=== PATIENT | female | born 1960 | race Caucasian/White ===

== ENCOUNTER 2018-02-25 16:45 | Inpatient (IN) | payer BC ==
[~2018-02-25] VITALS: Ht 160 cm; Wt 45.8 kg
[2018-02-25 17:10] VITALS: BP_SYST 118
[2018-02-25] MEDS ORDERED: NACL 0.9% 2,000 ML IV ONE (17:30)
[2018-02-25 17:48] LABS: BASOPHILS % (AUTO) 0.3 % (0.0-2.0); EOSINOPHILS % (AUTO) 0.1 % (0.0-4.0); HEMATOCRIT 41.8 % (36-48); HEMOGLOBIN 14.3 g/dL (12.0-16.0); LYMPHOCYTES % (AUTO) 6.6 % (20.5-51.5); MEAN CORPUSCULAR HEMOGLOBIN 32 pg (27-31); MEAN CORPUSCULAR HGB CONC 34 % (32-36); MEAN CORPUSCULAR VOLUME 93 fL (79.0-98.0); MONOCYTES # (AUTO) 1.1 K/uL (0.0-1.0); MONOCYTES % (AUTO) 7.3 % (1.7-9.3); NEUTROPHILS # (AUTO) 12.4 K/uL (1.8-7.7); NEUTROPHILS % (AUTO) 85.7 % (40.0-70.0); PLATELET COUNT (AUTO) 391 K/uL (130-430); RED BLOOD CELL COUNT(AUTO) 4.52 MIL/uL (4.2-6.2); RED CELL DISTRIBUTION WIDTH 12.5 % (9.0-15.0); WHITE BLOOD COUNT (AUTO) 14.5 K/uL (4.8-10.8)
[2018-02-25 18:01] LABS: CALCIUM 10.7 mg/dL (8.4-11.0); CREATININE 1.34 mg/dL (0.55-1.30); POTASSIUM 3.8 mmol/L (3.5-5.1)
[2018-02-25 18:02] LABS: ALBUMIN 4.2 g/dL (3.4-4.8); TOTAL BILIRUBIN 0.8 mg/dL (0.0-1.0)
[2018-02-25 18:15] LABS: BILIRUBIN,URINE NEGATIVE (NEGATIVE); BLOOD, URINE 3+ (NEGATIVE); CLARITY/URINE CLEAR (CLEAR); COLOR,URINE YELLOW (YELLOW); GLUCOSE,URINE 3+ (NEGATIVE); KETONES,URINE 1+ (NEGATIVE); LEUKOCYTE ESTERASE ,URINE TRACE (NEGATIVE); NITRITE, URINE NEGATIVE (NEGATIVE); PH,URINE 5.5 (5.0-8.0); PROTEIN URINE 2+ (NEGATIVE); UROBILINOGEN,URINE 0.2 (0.2-1.0)
[2018-02-25 18:19] LABS: BACTERIA,URINE MODERATE /HPF (None Seen); RBC,URINE >100 /HPF (0-3)
[2018-02-25] MEDS ORDERED: INSULIN REGULAR, HUMAN 10 UNITS/0.1 ML INJ IVP ONE (18:45)
[2018-02-25] MEDS ORDERED: cefTRIAXone 1 GM IVPB PREMIX 50 ML IV ONE (18:45)
[2018-02-25] MEDS ORDERED: NACL 0.9% 1,000 ML IV ONE (18:45)
[2018-02-25] MEDS ORDERED: ACET-1010 PO (19:20)
[2018-02-25 20:00] VITALS: BP_SYST 133
[2018-02-25 20:31] VITALS: BP_SYST 120
[2018-02-25] MEDS: KCL 20 mEq in 0.45% NS 1000 mL 1,000 ML IV SCH (21:48)
[2018-02-25] MEDS ORDERED: ONDANSETRON HCL 4 MG/2 ML VIAL IVP PRN (22:30)
[2018-02-25] MEDS ORDERED: INSULIN REGULAR, HUMAN 100 UNITS/ML, 10 ML VIAL (novoLIN R) SUBCUT PRN (22:30)
[2018-02-26 00:05] VITALS: BP_SYST 125
[2018-02-26] MEDS: KCL 20 mEq in 0.45% NS 1000 mL 1,000 ML IV SCH (05:56)
[2018-02-26 06:54] LABS: BASOPHILS # (AUTO) 0.1 K/uL (0.0-0.2); BASOPHILS % (AUTO) 0.6 % (0.0-2.0); EOSINOPHILS # (AUTO) 0.1 K/uL (0.0-0.4); EOSINOPHILS % (AUTO) 0.4 % (0.0-4.0); HEMATOCRIT 35.5 % (36-48); HEMOGLOBIN 12.4 g/dL (12.0-16.0); LYMPHOCYTES # (AUTO) 1.7 K/uL (1.0-5.5); LYMPHOCYTES % (AUTO) 13.1 % (20.5-51.5); MEAN CORPUSCULAR HEMOGLOBIN 33 pg (27-31); MEAN CORPUSCULAR HGB CONC 35 % (32-36); MEAN CORPUSCULAR VOLUME 93 fL (79.0-98.0); MONOCYTES # (AUTO) 1.1 K/uL (0.0-1.0); MONOCYTES % (AUTO) 8.9 % (1.7-9.3); NEUTROPHILS # (AUTO) 9.7 K/uL (1.8-7.7); PLATELET COUNT (AUTO) 313 K/uL (130-430); RED BLOOD CELL COUNT(AUTO) 3.82 MIL/uL (4.2-6.2); WHITE BLOOD COUNT (AUTO) 12.7 K/uL (4.8-10.8)
[2018-02-26 07:38] LABS: CALCIUM 9.2 mg/dL (8.4-11.0); CREATININE 0.64 mg/dL (0.55-1.30); POTASSIUM 3.8 mmol/L (3.5-5.1)
[2018-02-26] MEDS: KCL 20 mEq in NS 1000 mL 1,000 ML IV SCH ×3 (09:32→21:22)
[2018-02-26] MEDS: ACETAMINOPHEN 325 MG TABLET PO PRN (10:59)
[2018-02-26] MEDS: INSULIN ASPART 100 UNITS/ML, 10 ML VIAL SUBCUT SCH ×2 (11:58→17:42)
[2018-02-26 12:00] VITALS: BP_SYST 129
[2018-02-26] MEDS: INSULIN ASPART 100 UNITS/ML, 10 ML VIAL (NovoLOG) SUBCUT PRN ×3 (12:09→21:39)
[2018-02-26 16:00] VITALS: BP_SYST 128
[2018-02-26] MEDS ORDERED: DOCUSATE SODIUM 250 MG CAPSULE PO PRN (17:30)
[2018-02-26] MEDS: cefTRIAXone 1 GM in D5W 50 ML IV SCH (17:48)
[2018-02-26 19:45] VITALS: BP_SYST 137
[2018-02-26] MEDS: SENNOSIDES 8.6 MG TABLET PO SCH (21:20)
[2018-02-26] MEDS: ENOXAPARIN SODIUM 30 MG/0.3 ML SYRINGE SUBCUT SCH (21:22)
[2018-02-27 00:09] VITALS: BP_SYST 141
[2018-02-27] MEDS: KCL 20 mEq in NS 1000 mL 1,000 ML IV SCH ×3 (03:50→17:43)
[2018-02-27] MEDS: INSULIN ASPART 100 UNITS/ML, 10 ML VIAL SUBCUT SCH ×3 (06:46→17:48)
[2018-02-27] MEDS: INSULIN ASPART 100 UNITS/ML, 10 ML VIAL (NovoLOG) SUBCUT PRN ×3 (06:47→17:49)
[2018-02-27 07:08] LABS: CREATININE 0.48 mg/dL (0.55-1.30); POTASSIUM 3.8 mmol/L (3.5-5.1); THYROID STIMULATING HORMONE 1.18 uIu/mL (0.34-4.82)
[2018-02-27 08:00] VITALS: BP_SYST 151
[2018-02-27] MEDS: ACETAMINOPHEN 325 MG TABLET PO PRN ×2 (11:46→21:54)
[2018-02-27 12:05] VITALS: BP_SYST 157
[2018-02-27 16:53] VITALS: BP_SYST 153
[2018-02-27] MEDS: cefTRIAXone 1 GM in D5W 50 ML IV SCH (17:43)
[2018-02-27 19:45] VITALS: BP_SYST 105
[2018-02-27] MEDS: SENNOSIDES 8.6 MG TABLET PO SCH (21:14)
[2018-02-27] MEDS: ENOXAPARIN SODIUM 30 MG/0.3 ML SYRINGE SUBCUT SCH (21:15)
[2018-02-27 23:56] VITALS: BP_SYST 158
[2018-02-28] MEDS: KCL 20 mEq in NS 1000 mL 1,000 ML IV SCH ×3 (02:28→17:10)
[2018-02-28] MEDS: INSULIN ASPART 100 UNITS/ML, 10 ML VIAL SUBCUT SCH ×3 (07:12→17:02)
[2018-02-28] MEDS: INSULIN ASPART 100 UNITS/ML, 10 ML VIAL (NovoLOG) SUBCUT PRN ×3 (07:13→17:03)
[2018-02-28 08:00] VITALS: BP_SYST 148
[2018-02-28 08:23] LABS: CALCIUM 9.2 mg/dL (8.4-11.0); CREATININE 0.52 mg/dL (0.55-1.30); POTASSIUM 3.9 mmol/L (3.5-5.1)
[2018-02-28] MEDS: ACETAMINOPHEN 325 MG TABLET PO PRN (12:04)
[2018-02-28 12:34] VITALS: BP_SYST 145
[2018-02-28 16:47] VITALS: BP_SYST 145
[2018-02-28] MEDS: cefTRIAXone 1 GM in D5W 50 ML IV SCH (18:00)
[2018-02-28 20:10] VITALS: BP_SYST 157
[2018-02-28] MEDS: SENNOSIDES 8.6 MG TABLET PO SCH (21:25)
[2018-02-28] MEDS: ENOXAPARIN SODIUM 30 MG/0.3 ML SYRINGE SUBCUT SCH (21:26)
[2018-03-01] VITALS: BP_SYST 151
[2018-03-01] MEDS: KCL 20 mEq in NS 1000 mL 1,000 ML IV SCH ×3 (03:59→17:50)
[2018-03-01] MEDS: INSULIN ASPART 100 UNITS/ML, 10 ML VIAL (NovoLOG) SUBCUT PRN ×4 (07:03→21:06)
[2018-03-01] MEDS: INSULIN ASPART 100 UNITS/ML, 10 ML VIAL SUBCUT SCH ×3 (07:04→17:58)
[2018-03-01 08:07] VITALS: BP_SYST 145
[2018-03-01 12:00] VITALS: BP_SYST 155
[2018-03-01 16:00] VITALS: BP_SYST 155
[2018-03-01] MEDS: cefTRIAXone 1 GM in D5W 50 ML IV SCH (17:51)
[2018-03-01 19:40] VITALS: BP_SYST 148
[2018-03-01] MEDS: ENOXAPARIN SODIUM 30 MG/0.3 ML SYRINGE SUBCUT SCH (21:03)
[2018-03-01] MEDS: SENNOSIDES 8.6 MG TABLET PO SCH (21:03)
[2018-03-02] VITALS: BP_SYST 159
[2018-03-02] MEDS: KCL 20 mEq in NS 1000 mL 1,000 ML IV SCH ×2 (02:41→09:16)
[2018-03-02] MEDS: INSULIN ASPART 100 UNITS/ML, 10 ML VIAL SUBCUT SCH ×2 (06:59→11:46)
[2018-03-02 07:08] LABS: CALCIUM 9.3 mg/dL (8.4-11.0); CREATININE 0.54 mg/dL (0.55-1.30)
[2018-03-02 08:00] VITALS: BP_SYST 151
[2018-03-02 11:21] VITALS: BP_SYST 156
[2018-03-02] MEDS: INSULIN ASPART 100 UNITS/ML, 10 ML VIAL (NovoLOG) SUBCUT PRN (11:50)
[2018-03-02] MEDS ORDERED: INSU100I20 SQ (13:11)
[2018-03-02] MEDS ORDERED: VALS1TAB40 PO (13:12)
[2018-03-02 13:20] VITALS: BP_SYST 158
== END 2018-03-02 16:32 | disposition home or self-care (01) | DRG 682 ==
LOC: SED 16:45 → STU 19:15 → SMU 02-27 18:47
PROVIDERS: ADMIT Family Medicine; ATTEND Family Medicine
DX: N17.9 Acute kidney failure, unspecified (principal); E11.00 Type 2 diabetes mellitus with hyperosmolarity without nonketotic hyperglycemic-hyperosmolar coma (NKHHC); N39.0 Urinary tract infection, site not specified; E87.0 Hyperosmolality and hypernatremia; E87.2 Acidosis; E11.65 Type 2 diabetes mellitus with hyperglycemia; F32.9 Major depressive disorder, single episode, unspecified; E86.0 Dehydration; R32 Unspecified urinary incontinence; I10 Essential (primary) hypertension; Z88.0 Allergy status to penicillin; Z88.5 Allergy status to narcotic agent
CPT/HCPCS: 36415; 71045; 80048; 80053; 81000-TC; 82550-TC; 82962; 83036; 83605; 83735-TC; 83880; 84443-TC; 84484; 85025; 87086; 93005; 96361; 96365; 96375; 99285; 99291; J0696; J1650; J1815; J3480; J7030; J7060